=== PATIENT | male | born 2000 | race African-American/Black ===

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

== ENCOUNTER 2022-10-26 15:51 | Outpatient (CLI) | payer OTHER, MEDICAID, SELFPAY ==
[2022-10-26 16:24] LABS: Alanine Aminotransferase 15 U/L (6-50); Albumin Level 4.9 g/dL (3.5-5.1); Alkaline Phosphatase 77 U/L (38-126); Anion Gap 6 mmol/L (8-16); Aspartate Amino Transferase 20 U/L (17-59); Bilirubin,Total 0.4 mg/dL (0.2-1.3); Blood Urea Nitrogen 9 mg/dL (9-20); Calcium 9.1 mg/dL (8.4-10.2); Carbon Dioxide 30 mmol/L (22-30); Chloride 102 mmol/L (98-107); Estimated Glomerular Filt Rate > 60; Glucose 106 mg/dL (65-110); Potassium 3.9 mmol/L (3.4-5.0); Sodium 138 mmol/L (137-145)
[2022-10-26 17:11] LABS: Vitamin D 25 Hydroxy 29.7 ng/mL
== END 2022-10-26 15:52 | disposition home or self-care (01) ==
PROVIDERS: PCP Family Medicine
DX: G40.309 Generalized idiopathic epilepsy and epileptic syndromes, not intractable, without status epilepticus (principal)
CPT/HCPCS: 36415; 80053; 80183; 82306

== ENCOUNTER 2025-03-27 13:13 | Emergency (ER) | payer OTHER, SELFPAY ==
--- NOTE | ~2025-03-27 | CT_ITS ---
EXAMINATION: CT lumbar spine wo con COMPARISON: None HISTORY: low back pain, trauma TECHNIQUE: Axial images were obtained through the spine without IV contrast. Coronal, sagittal reconstruction images were obtained from the axial views. CT scan performed using dose optimization techniques including the following automated exposure control; adjustment of mA and/or kV; use of iterative reconstruction technique. Automatic exposure control was used to reduce radiation dose. Permanent radiation dose record is archived to PACS. FINDINGS: There is an acute superior endplate fracture of L2 with loss of height and facet. There is an acute superior endplate fracture of L3 with retropulsion measures 3 mm in loss of height 50%. The disc heights are intact. Soft tissues unremarkable. Impression: Fractures detailed above Reviewed, dictated and finalized at location P. Impression: Fractures detailed above
[2025-03-27 13:17] VITALS: BP 130/96; PULSE 92; RESP 20; TEMP 36.3; O2SAT 99
--- NOTE | 2025-03-27 13:36 | ED.GENADULT ---
HPI - General Adult General Chief complaint: Back Pain/Injury Stated complaint: back pain Time Seen by Provider: 03/27/25 13:17 History of Present Illness HPI narrative: A 24-year-old male history of epilepsy present to the emergency department for evaluation for a breakthrough seizure. Patient reports he typically has but 3 breakthrough seizures a year. States that they are often caused by sleep deprivation. Patient states he did stay up too late last night. Patient denies anything unusual about this seizure and does feel back to his baseline. Patient is here with his mother also states patient is back to his baseline. Patient's primary complaint is lower back pain. Patient did take ibuprofen for pain control at home. Patient denies any associated numbness or weakness. Related Data Home Medications ?Medication ?Instructions ?Recorded ?Confirmed ?Last Taken ?Type oxcarbazepine 600 mg 600 mg PO DAILY 12/30/21 11/16/24 Unknown History tablet,extended release 24 hr (Oxtellar XR) Allergies Allergy/AdvReac Type Severity Reaction Status Date / Time No Known Allergies Allergy Verified 03/27/25 13:43 Review of Systems Review of Systems: All systems reviewed & are unremarkable except as noted in HPI and below PMFSH Past Medical History Medical History Rash Brain mass Enlarged lymph node Excessive sweating Generalized epilepsy Valente's fracture, right hand, initial encounter for closed fracture [place]-Schlatter's disease of left lower extremity Tinea corporis Unspecified convulsions Body mass index (BMI) less than 20 Hyperhidrosis Nail deformity Family History Family History Father No problems noted. Mother Hyperhidrosis Sibling No problems noted. Other Family history of coronary artery disease Family history of elevated blood lipids Social History Social History Smoking status: Never smoker Second hand tobacco smoke exposure: No Alcohol intake: never Substance use: current Substance use type: marijuana Living arrangements: with family Occupation/Education: student Additional occupation/education comments: lawn care Gender identity (if verbalized by the patient): Male Exam Narrative: APPEARANCE: Well appearing, no pain, no distress, well-nourished. HEAD: normocephalic, atraumatic. EYES: PERRLA/EOMI, conjunctivae clear. NOSE: Normal no drainage EARS:TMS clear with good light reflex. THROAT: Pharynx clear, no exudate. NECK: Supple. No adenopathy, no masses. RESPIRATORY: Airway patent, respirations nonlabored. Clear to auscultation bilaterally, no rales, rhonchi, wheezing. CARDIOVASCULAR: Regular rate and rhythm without murmurs rubs or gallops. ABDOMINAL: Soft, nontender, nondistended, normal bowel sounds MUSCULOSKELETAL: Lower back tenderness to palpation NEURO: Alert. Cranial nerves II through XII intact. Good gait. Good coordination SKIN: Warm, dry. Normal Color Course Vital Signs Vital signs: Vital Signs Temperature 97.3 F L 03/27/25 13:17 Pulse Rate 92 03/27/25 13:17 Respiratory Rate 20 03/27/25 13:17 Blood Pressure 130/96 H 03/27/25 13:17 Pulse Oximetry 99 03/27/25 13:17 Oxygen Delivery Room Air 03/27/25 13:17 Temperature 97.3 F L 03/27/25 13:17 Pulse Rate 92 03/27/25 13:17 Respiratory Rate 20 03/27/25 13:17 Blood Pressure 130/96 H 03/27/25 13:17 Pulse Oximetry 99 03/27/25 13:17 Oxygen Delivery Room Air 03/27/25 13:17 Medical Decision Making MDM Narrative Medical decision making narrative: 24-year-old male presents emergency department for evaluation of lower back pain after having a seizure today. Patient is unsure how he injured his back but patient does complain of lower back pain. Patient denies any change in bladder or or bowel habits. Patient denies any associated numbness or weakness. Patient's primary complaint is pain. Patient was treated with IM Toradol and p.o. Meally in the emergency department and does report he does still have pain but does feel improved. Patient and family were updated on results of the workup they are comfortable with plan for discharge and close follow-up with Neurosurgery. They were also advised to try a lumbar back support Differential Diagnosis Differential Diagnosis: lumbar contusion, lumbar fracture, spinal cord injury, quad Aquinas syndrome Vital Signs Vital Signs: Vital Signs Temperature 97.3 F L 03/27/25 13:17 Pulse Rate 92 03/27/25 13:17 Respiratory Rate 20 03/27/25 13:17 Blood Pressure 130/96 H 03/27/25 13:17 Pulse Oximetry 99 03/27/25 13:17 Oxygen Delivery Room Air 03/27/25 13:17 Temperature 97.3 F L 03/27/25 13:17 Pulse Rate 92 03/27/25 13:17 Respiratory Rate 20 03/27/25 13:17 Blood Pressure 130/96 H 03/27/25 13:17 Pulse Oximetry 99 03/27/25 13:17 Oxygen Delivery Room Air 03/27/25 13:17 Imaging Data Radiologist's impression: Impressions Lumbar Spine CT 03/27/25 14:01 Impression: Fractures detailed above Discharge Plan Discharge Clinical Impression: Closed lumbar vertebral fracture Patient Disposition: Home Condition: Stable Instructions: Antibiotic Form, Vertebral Compression Fracture (ED) Additional Instructions: ibuprofen for pain control. Flexeril for muscle spasm. Meally as needed for additional pain control. Have close follow-up with Neurosurgery. If you have any worsening symptoms then please call or return to the emergency department. A lumbar back support may help with your symptoms. If you develop numbness weakness of the legs or difficulty starting urination or incontinence to stool then please call or return to the emergency department. Patient Language: Lithuanian Prescriptions: New cyclobenzaprine 10 mg tablet 10 mg PO BID PRN (Reason: muscle spasm) Qty: 14 0RF hydrocodone-acetaminophen 5-325 mg tablet 1 tablet PO Q12H PRN (Reason: pain) Qty: 14 0RF No Action Oxtellar XR 600 mg tablet extended release 24 hr 600 mg PO DAILY Follow-up/Referrals: Praveen Karimi MD [Physician, Neurosurgery] Jeramy Ramirez MD [Primary Care Provider, Family Practice]
[2025-03-27] MEDS: CYCLOBENZAPRINE HCL 10 MG TABLET PO (13:41)
[2025-03-27] MEDS: HYDROcodone/acetaminophen (*CRX) 7.5-325 MG TABLET 1 TAB PO (13:41)
--- OUTSIDE RECORDS SUMMARY | 2025-03-27 14:06 | XMS_ITS | Clinical Summary ---
Author Organization [facility] Address [address] [place] [address] Care Team Providers Care Ropeman Name Role Phone Jeramy Ramirez MD Unavailable [phone] Jeramy Ramirez MD Primary Care Provider [phone] Source Comments [facility],non-owned Affiliates and Associated Physician Practices is amultiple site organization consisting of ambulatory clinics and hospital sitesin [place], [place], [place] and [place]. This disclosure is being madepursuant to the Care Everywhere program and may not contain all information available regarding this patient. Last updated 18.[facility] Allergies No known active allergies Medications * This document contains information received from the source organization and may not represent a complete record from that organization. * Be aware that medications may not be up to date on this document. Alwaysverify current medications with the patient. glycopyrrolate (ROBINUL) 2 MG tabletIndication s:Hyperhidrosis Take 1 (one) tablet by mouth once daily Reasons: Excessive Sweating Disorder 0 Active clonazePAM, disintegrating, (KlonoPIN Wafer) 0.5 MG tablet Dissolve 1 (one) tablet under the tongue as needed (administer 1 tab PRN x 1 for seziure rescue or post ictal confusion/agre ssion) 5 tablet 3 Active OXcarbazepine ER 24hr (Oxtellar XR) 300 MG tablet Take 1 (one) tablet by mouth once daily on an empty stomach Take on an empty stomach with (3) 600mg tablets 30 tablet 11 5 Active OXcarbazepine ER 24hr (Oxtellar XR) 600 MG tabletIndication s:Generalized convulsive epilepsy without intractable epilepsy (HCC) TAKE 3 TABLETS BY MOUTH ONCE DAILY ON AN EMPTY STOMACH WITH (1) 300MG TAB 90 tablet 11 5 Active Active Problems Patient Care Coordination No te Formatting of this note migh t be different from the original. Do you have any cultural preferences or concerns? No 02/09/22 Problem Noted Date Diagnosed Date LEFT Temporal lobe lesion 12/30/2016 Complex partial seizure evolving to generalized seizure 05/08/2015 Overview (03/04/2019): Onset: 1st seizure happened at school in 07/2014. EEG 08/09/2014: generalized spikes and sharp wave discharges consistent with tendency toward generalized epilepsy. 03/10/2017: diffuse epileptogenic dysfunction apparently emanating from the left hemisphere but not discretely localized over the known lesion on neuroimaging. No clinical seizures were recorded. 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 Last MRI: 08/12/2018 showed unchanged brain lesion. February 2017 he had epilepsy surgery evaluation but his EEG showed diffuse discharges and not coming from the site of lesion so was consider not a candidate for surgery. Seizure semiology: Pre-ictal: none Ictus: unresponsiveness then tonic posturing of the body. Duration typically 30-40 sec; max 3 minutes Post-ictal: tired and sleepy. Last seizure: 09/2018 Previous AED: He continued to have seizures on lamictal and had poor tolerance so was switched to Trileptal 300 mg qd in May 2016. 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 Last seizure 09/2018 while on Oxtellar 1200 mg QHS with good compliance. - BMP, CBC, vitamin D and trileptal level - given seizure in 09/2018 while on current oxtellar dosing, depending on what today's level is, may consider increasing Oxtellar dose by additional 300 mg. Until then, continue 1200 mg QHS - if Oxtellar does not provide complete seizure control, next consider Depakote - no rescue meds needed - seizure action plan provided today - Basic seizure precautions 1. No climbing to heights over 4-6 feet 2. No un supervised sitting in water of any kind, including bath tubs and swimming pools. Showers are preferred, no locked doors. 3. No operating anything with a motor, including lawn mowers, ATV, or cars until at least 6 mo seizure-free 4. No power tools 5. You CAN ride a bicycle on a quiet street with a helmet Assessment & Plan (03/26/2018 10:04 AM CDT): 17 yo male with left posterior Tempral subcortical lesion also has complex partial seizures with rapidly secondary generalization. Surgical evaluation was negative due to diffuse discharges. Since that evaluation he is doing well. Has seizures if he misses doses of sleep deprived. Last seizure is in August 2017. Continue trileptal (Oxtellar) 900 mg at night. (tab 600 mg + 300 mg). Plan: Will get BMP and Trileptal level Today. Continue trileptal (Oxtellar) 900 mg at night. (tab 600 mg + 300 mg). If any questions call Neurology clinic on [phone] Wednesday-Wednesday between 8 am to 4 pm. After 4 pm or on the weekend call [phone]; ask for on-call Neurologist. Assessment & Plan (03/03/2017 12:28 PM CDT): Lata is a 16 yo male with seizures and a subcortical L temporal lobe lesion. History is unclear whether seizures are focal with secondary generalization or are generalized seizures, as only one seizure was witnessed from the beginning and reportedly had shaking of one hand prior to full body shaking. 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 Continue VEEG. We will hold his anti-epileptic medications and continue sleep deprivation in hopes that he has an event that can be recorded to properly evaluate the origin of his seizures. Ativan will be prescribed prn for seizure termination. Assessment & Plan (03/02/2017 1:03 PM CDT): Lata is a 16 yo male with seizures and a L temporal lobe lesion. History is unclear whether seizures are focal with secondary generalization or are generalized seizures. EEG overnight showed spike and wave discharges originating in the frontal lobes, but did not suggest that the L temporal mass is a seizure nidus. We will hold his anti-epileptic medications and sleep deprive him overnight while continuing EEG monitoring in hopes that he has an event that can be recorded to properly evaluate the origin of his seizures. Ativan will be prescribed prn for seizure termination. Encounters Date Type Department Care Team Description 02/22/2025 Results Follow-Up [facility] - Neurology [address] [place] [phone] Christ Philippe MD 02/14/2025 12:38 PM CDT - 02/14/2025 11:59 PM CDT Hospital Encounter [facility] - Lab [address] [place] [phone] Christ Philippe MD Discharge Disposition: Home or Self Care 02/14/2025 11:30 AM CDT - 02/14/2025 12:37 PM CDT Hospital Encounter [facility] - Neurology [address] [place] [phone] Christ Philippe MD Discharge Disposition: Home or Self Care 02/14/2025 Travel 02/02/2025 1:24 PM CDT - 02/02/2025 11:59 PM CDT Hospital Encounter [facility] - MRI [address] [place] [phone] Christ Philippe MD Discharge Disposition: Home or Self Care 01/08/2025 Refill [facility] - Neurology [address] [place] [phone] Christ Philippe MD Question from Last 3 Months Immunizations Immunization Administration Dates Next Due DTaP VACCINE IM (6wk-6yrs) 08/26/2007,,04/30/2003,02/26,2002 HEP B VACCINE, PED/ADOL 08/03/2003,2002, HIB VACCINE 02/18/2004, 3,02/26/2003,12/12 Human Papilloma Virus Nineva lent Vaccine 01/26/2017 Human Papilloma Virus Robin valent Vaccine 01/12/2014 INFLUENZA VACCINE 05/23/2004,04/23/2004 MENINGOCOCCAL ACWY (MCV4P) VAC IM 04/02/2020,01/2017 MMR VACCINE 08/26/2007,10/22/2003 PNEUMOCOCCAL PCV7 CONJ, PEDS 05/20/2004, 04/30/2003,02/26/2003,12/12 POLIO IPV 08/26/2007, 4,02/26/2003,12/12 TDAP, HISTORIC VACCINE 01/12/2014 VARICELLA 01/12/2014,10/22/2003 Social History Tobacco Use Types Packs/Day Years Used Date Smoking Tobacco: Never Passive Smoke Exposure: Never Smokeless Tobacco: Never Tobacco Cessation:Counseling Given: Not Answered Comments:Vapes Alcohol Use Standard Drinks/Week Comments Yes 1 (1 standard drink = 0.6 oz pur e alcohol) occasional drinks PHQ-2 Answer Date Recorded Patient Health Questionnaire-2 Score 0 09/06/2023 Sex and Gender Information Value Date Recorded Sex Assigned at Not on file Legal Sex Male 3:06 PM [employer] Gender Identity Not on file Sexual Orientation Not on file Last Filed Vital Signs Vital Sign Reading Time Taken Comments Blood Pressure 128/82 02/14/2025 11:49 AM CDT Pulse 55 08/16/2019 12:00 PM [employer] Temperature 36.5 C (97.7 F) 08/16/2019 12:00 PM [employer] Respiratory Rate 16 08/16/2019 12:00 PM [employer] Oxygen Saturation 99% 08/16/2019 12:00 PM [employer] Inhaled Oxygen Concentration - - Weight 65 kg (143 lb 4.8 oz) 02/14/2025 11:49 AM CDT Height 181 cm (5' 11.26) 02/14/2025 11:49 AM CD T Body Mass Index 19.84 02/14/2025 11:49 AM CDT Plan of Treatment Health Maintenance Due Date Last Done Comments HIV SCREENING 2017 MENINGOCOCCAL (Group B) VACC INE SHARED DECISION-MAKING (1 of 2 - Standard) 2018 HEPATITIS C SCREENING 10/06/2020 DTAP/TDAP/TD VACCINES (7 - T d or Tdap) 01/13/2024 01/12/2014, 08/26/2007, 02/18/2004, Additional history exists DEPRESSION SCREENING 06/21/2024 09/06/2023 COVID-19 VACCINE (2023-2 5 season) 2025 INFLUENZA VACCINE (#1) 2025 05/23/2004, 2003 ZOSTER VACCINE (1 of 2) 2052 HEPATITIS B VACCINE Completed 08/03/2003, 2002, 2002 HIB VACCINE Completed 02/18/2004, 04/21, 02/26/2003, Additional history exists PNEUMOCOCCAL VACCINE Completed 05/20/2004, 04/30/2003, 02/26/2003, Additional history exists HPV VACCINE Completed 01/26/2017, 01/12/2014 MENINGOCOCCAL GROUPS A/C/Y/W VACCINE Completed 04/02/2020, 01/26/2017 Procedures Procedure Name Priority Date/Time Associated Diagnosis Comments COMPREHENSIVE METABOLIC PANEL Routine 02/14/2025 12:40 PM CDT Generalized convulsive epilepsy without intractable epilepsy (HCC) CBC W AUTO DIFFERENTIAL Routine 02/14/2025 12:40 PM CDT Generalized convulsive epilepsy without intractable epilepsy (HCC) VITAMIN D 25-HYDROXY Routine 02/14/2025 12:40 PM CDT Generalized convulsive epilepsy without intractable epilepsy (HCC) OXCARBAZEPINE BLOOD Routine 02/14/2025 1 2:40 PM CDT Generalized convulsive epilepsy without intractable epilepsy (HCC) MRI BRAIN WWO CONTRAST Routine 3:30 PM CDT Brain mass Partial symptomatic epilepsy with complex partial seizures, not intractable, without status epilepticus (HCC) from Last 3 Months Results * (ABNORMAL) OXCARBAZEPINE (02/14/2025 12:40 PM CDT) Oxcarbazepine Metabolite 45.4(H) 10.0 - 35.0 ug/mL 02/16/2025 3:46 PM CDT [facility] ([facility]) Comment: INTERPRETIVE INFORMATION: Oxcarbazepine Metabolite, Serum Therapeutic Range: 10.0 - 35.0 ug/mL Toxic Range: >=40.0 ug/mL This test measures monohydroxyoxcarbazepine (MHD). Adverse effects may include dizziness, fatigue, nausea, headache, somnolence, ataxia, and tremor. Performed By: [facility] [address] [place] [address] Cotton Dispatcher: [place] Oneill MD, PhD CLIA Number: [id number] Blood BLOOD SPECIMEN / Unknown Lab Venipuncture / Unknown 02/14/2025 12:40 PM CDT 02/14/2025 12:50 PM CDT us Christ Philippe MD LAB - CHEMISTRY ORDERABLES Eloise rhett Result [facility]) [address] [place] [address] * (ABNORMAL) VITAMIN D 25-HYDROXY (02/14/2025 12:40 PM CDT) Vitamin D, 25 Hydroxy 22.7(L) 30.0 - 80.0 ng/mL 02/14/2025 1:58 PM CDT [facility] Comment: The recommendations for 25-Hydroxy Vitamin D clinical decision points are as follows: Deficient: <20.0 ng/mL Insufficient: 20.0 - 29.9 ng/mL Sufficient: 30.0 - 100.0 ng/mL Potential Toxicity: >100 ng/mL Reference: The Endocrine Society Clinical Practice Guidelines. 2011 If the 25-Hydroxy Vitamin D results are inconsitent with clinical evidence, it is recommended that follow-up testing using a method such as LC/MS/MS be performed to confirm the result. Blood BLOOD SPECIMEN / Unknown Lab Venipuncture / Unknown 02/14/2025 12:40 PM CDT 02/14/2025 12:50 PM CDT us Christ Philippe MD LAB - CHEMISTRY ORDERABLES Eloise delaney Result [facility] [address] [place] [address], [facility] [phone] * (ABNORMAL) CBC W AUTO DIFFERENTIAL (02/14/2025 12:40 PM CDT) WBC 6.5 4.0 - 10.7 x10E9/L 02/14/2025 1:00 PM [facility] RBC Count 4.39 4.30 - 5.80 x10E12/L 02/14/2025 1:00 PM [facility] Hemoglobin 12.5(L) 13.3 - 17.5 g/dL 02/14/2025 1:00 PM [facility] Hematocrit 37.4(L) 38.7 - 51.1 % 02/14/2025 1:00 PM [facility] MCV 85.2 80.0 - 98.0 fL 02/14/2025 1:00 PM [facility] MCH 28.5 26.7 - 33.6 pg 02/14/2025 1:00 PM [facility] MCHC 33.4 31.7 - 36.3 g/dL 02/14/2025 1:00 PM [facility] RDW-CV 12.7 11.3 - 14.8 % 02/14/2025 1:00 PM [facility] Platelet Count 261 150 - 420 x10E9/L 02/14/2025 1:00 PM [facility] MPV 9.2 7.8 - 11.4 fL 02/14/2025 1:00 PM [facility] Neutrophil % 57.5 41.0 - 74.0 % 02/14/2025 1:00 PM [facility] Lymphocyte % 32.9 17.0 - 47.0 % 02/14/2025 1:00 PM [facility] Monocyte % 8.0 3.0 - 11.0 % 02/14/2025 1:00 PM T [facility] Eosinophil % 0.6 0.0 - 7.0 % 02/14/2025 1:00 PM [facility] Basophil % 0.8 0.0 - 1.6 % 02/14/2025 1:00 PM [facility] Immature Granulocytes % 0.2 0.0 - 1.0 % 02/14/2025 1:00 PM [facility] Neutrophil Absolute 3.73 1.60 - 7.50 x10E9/L 02/14/2025 1:00 PM [facility] Lymphocyte Absolute 2.13 1.00 - 4.40 x10E9/L 02/14/2025 1:00 PM [facility] Monocyte Absolute 0.52 0.15 - 1.00 x10E9/L 02/14/2025 1:00 PM [facility] Eosinophil Absolute 0.04 0.00 - 0.60 x10E9/L 02/14/2025 1:00 PM [facility] Basophil Absolute 0.05 0.00 - 0.13 x10E9/L 02/14/2025 1:00 PM [facility] Blood BLOOD SPECIMEN / Unknown Lab Venipuncture / Unknown 02/14/2025 12:40 PM CDT 02/14/2025 12:50 PM CDT us Christ Philippe MD LAB - HEMATOLOGY ORDERABLES Fin al Result [facility] [address] [place] [address], [facility] [phone] * (ABNORMAL) COMPREHENSIVE METABOLIC PANEL (02/14/2025 12:40 PM CDT) BUN 10 7 - 26 mg/dL 02/14/2025 1:39 PM [facility] Creatinine 0.84 0.71 - 1.16 mg/dL 02/14/2025 1:39 PM [facility] Sodium 133(L) 136 - 145 mmol/L 02/14/2025 1:39 PM [facility] Potassium 4.1 3.5 - 4.5 mmol/L 02/14/2025 1:39 PM [facility] Chloride 105 98 - 107 mmol/L 02/14/2025 1:39 PM [facility] CO2 25 22 - 29 mmol/L 02/14/2025 1:39 PM [facility] Glucose 112(H) 70 - 99 mg/dL 02/14/2025 1:39 PM [facility] Calcium 9.2 8.4 - 10.2 mg/dL 02/14/2025 1:39 PM [facility] Protein Total 7.1 6.0 - 8.3 g/dL 02/14/2025 1:39 PM [facility] Albumin 5.0 3.4 - 5.0 g/dL 02/14/2025 1:39 PM [facility] Bilirubin Total 0.3 0.2 - 1.2 mg/dL 02/14/2025 1:39 PM [facility] Alkaline Phosphatase 73 40 - 150 U/L 02/14/2025 1:39 PM [facility] ALT 12 5 - 55 U/L 02/14/2025 1:39 PM [facility] AST 15 5 - 34 U/L 02/14/2025 1:39 PM [facility] Anion Gap 3(L) 6 - 16 02/14/2025 1:39 PM [facility] BUN/Creatinine Ratio 12 7 - 23 02/14/2025 1:39 PM [facility] Osmolality Calculated 276 275 - 295 mOsm/kg 02/14/2025 1:39 PM [facility] Albumin/Globulin Ratio 2.4(H) 1.1 - 2.3 02/14/2025 1:39 PM [facility] eGFR by CKD-EPI >90 >=90 mL/min/1.7 3 m2 02/14/2025 1:39 PM CDT [facility] Comment:Estimated Glomerular Filtration Rate (eGFR) calculated using the CKD-EPI Creatinine Equation (2020), per the National Kidney Foundation and [place] Society of Nephrology recommendations. Blood BLOOD SPECIMEN / Unknown Lab Venipuncture / Unknown 02/14/2025 12:40 PM CDT 02/14/2025 12:50 PM CDT us Christ Philippe MD LAB - CHEMISTRY ORDERABLES Eloise delaney Result [facility] [address] [place] [address], [facility] [phone] * MRI Brain Wwo Contrast (02/02/2025 3:30 PM CDT) Anatomical Region Laterality Modality Head Magnetic Resonan ce 02/02/2025 3:37 PM CDT Impressions 02/02/2025 3:46 PM CDT IMPRESSION: Continued decrease in size of a T2 hyperintense focus of signal abnormality in the left inferior temporal lobe, strongly suggestive of sequela of prior injury or focal demyelination. No new area of signal abnormality. Questionable decreased trejo-white matter differentiation in the left hippocampus is not well evaluated. Given history of seizure, consider obtaining any follow-up MRI with seizure protocol (rather than tumor protocol) to obtain thin slice T2 sequence through the temporal lobes. > Interpreting Provider: Kathi Russo MD on 02/02/2025 3:46 PM Narrative 02/02/2025 3:46 PM CDT PROCEDURE: MRI BRAIN WWO CONTRAST DATE/TIME OF EXAM: 02/02/2025 3:30 PM CLINICAL INFORMATION: 24-year-old with epilepsy and history of left temporal lobe lesion (followed since at least 2015). COMPARISON: 09/06/2023, 03/17/2016. TECHNIQUE: MRI of the brain was performed without and with contrast. CONTRAST: GADOBUTROL 1 MMOL/ML IV SSM SO:5.7 mL FINDINGS: Continued significant decrease in size of the focus of subcortical signal abnormality in the left inferior temporal lobe, which now is best seen on T2-weighted sequence, with a small focus of T2 signal hyperintensity measuring approximately 0.5 x 0.4 x 0.3 cm (series 8 image 15 and series 6 image 15), previously 0.7 x 0.4 x 0.3 cm. There is no postcontrast enhancement. There is minimal associated FLAIR signal hyperintensity. There is no susceptibility artifact or diffusion restriction associated with the finding. No new area of signal abnormality. There is some subtle blurring of the trejo-white matter differentiation of the left hippocampus, which may be related to partial volume averaging as the exam does not contain any thin slice T2-weighted sequences of this region. The brain parenchymal signal and morphology are otherwise normal. The myelination pattern is otherwise normal for patient age. Diffusion and susceptibility weighted imaging are normal. There is no intracranial hemorrhage. The corpus callosum is normal. The pineal and pituitary glands are normal. The posterior fossa is normal, including no tonsillar herniation. The ventricles and extra-axial spaces are normal in size and shape. The flow voids of the major intracranial vessels are normal. No abnormal contrast enhancement is present within the brain parenchyma or meninges. The paranasal sinuses and mastoids are well aerated. The orbits, calvarium and soft tissues of the scalp are grossly unremarkable. Procedure Note Kathi Russo MD - 02/02/2025 PROCEDURE: MRI BRAIN WWO CONTRAST DATE/TIME OF EXAM: 02/02/2025 3:30 PM CLINICAL INFORMATION: 24-year-old with epilepsy and history of left temporal lobe lesion (followed since at least 2015). COMPARISON: 09/06/2023, 03/17/2016. TECHNIQUE: MRI of the brain was performed without and with contrast. CONTRAST: GADOBUTROL 1 MMOL/ML IV SSM SO:5.7 mL FINDINGS: Continued significant decrease in size of the focus of subcorticalsignal abnormality in the left inferior temporal lobe, which now is best seenon T2-weighted sequence, with a small focus of T2 signal hyperintensity measuring approximately 0.5 x 0.4 x 0.3 cm (series 8 image 15 and series6 image 15), previously 0.7 x 0.4 x 0.3 cm. There is no postcontrast enhancement. There is minimal associated FLAIR signal hyperintensity.There is no susceptibility artifact or diffusion restriction associated withthe finding. No new area of signal abnormality. There is some subtle blurring of the trejo-white matter differentiationof the left hippocampus, which may be related to partial volume averagingas the exam does not contain any thin slice T2-weighted sequences of this region. The brain parenchymal signal and morphology are otherwise normal. The myelination pattern is otherwise normal for patient age. Diffusion and susceptibility weighted imaging are normal. There is no intracranial hemorrhage. The corpus callosum is normal. The pineal and pituitary glands arenormal. The posterior fossa is normal, including no tonsillar herniation. The ventricles and extra-axial spaces are normal in size and shape. The flow voids of the major intracranial vessels are normal. No abnormal contrast enhancement is present within the brain parenchymaor meninges. The paranasal sinuses and mastoids are well aerated. The orbits,calvarium and soft tissues of the scalp are grossly unremarkable. IMPRESSION: Continued decrease in size of a T2 hyperintense focus of signalabnormality in the left inferior temporal lobe, strongly suggestive of sequela ofprior injury or focal demyelination. No new area of signal abnormality. Questionable decreased trejo-white matter differentiation in the left hippocampus is not well evaluated. Given history of seizure, consider obtaining any follow-up MRI with seizure protocol (rather than tumor protocol) to obtain thin slice T2 sequence through the temporal lobes. > Interpreting Provider: Kathi Russo MD on 02/02/2025 3:46 PM Christ Philippe MD MR ORDERABLES Final Result from Last 3 Months Insurance MEDICAID - [place] MED[place] - OUT OF STATE COMMERCIAL GENERIC Care Teams Ropeman Relationship Specialty Start Date End Date Jeramy Ramirez MD [address] [place] [address] PCP - General Family Medicine 08/10/14 Jeramy Ramirez MD [address] [place] [address] Family Medicine 08/09/14
--- OUTSIDE RECORDS SUMMARY | 2025-03-27 14:44 | XMS_ITS | Clinical Summary ---
Author Organization [facility] Address [address] [place] [address] Care Team Providers Care Logistics Research Engineer Name Role Phone Jeramy Ramirez MD Unavailable [phone] Jeramy Ramirez MD Primary Care Provider [phone] Source Comments [facility],non-owned Affiliates and Associated Physician Practices is amultiple site organization consisting of ambulatory clinics and hospital sitesin [place], [place], [place] and [place]. This disclosure is being madepursuant to the Care Everywhere program and may not contain all information available regarding this patient. Last updated 18.[facility] Allergies No known active allergies Medications * [...] If any questions call Neurology clinic on [phone] Wednesday-Wednesday between 8 am to 4 pm. After 4 pm or on the weekend call [phone]; ask for on-call Neurologist. Assessment & Plan [...] Department Care Team Description 02/22/2025 Results Follow-Up [facility] - Neurology [address] [place] [id number] Christ Philippe MD 02/14/2025 12:38 PM CDT - 02/14/2025 11:59 PM CDT Hospital Encounter [facility] - Lab [address] [place] [phone] Christ Philippe MD Discharge Disposition: Home or Self Care 02/14/2025 11:30 AM CDT - 02/14/2025 12:37 PM CDT Hospital Encounter [facility] - Neurology [address] [place] [phone] Christ Philippe MD Discharge Disposition: Home or Self Care 02/14/2025 Travel 02/02/2025 1:24 PM CDT - 02/02/2025 11:59 PM CDT Hospital Encounter [facility] - MRI [address] [place] [phone] Christ Philippe MD Discharge Disposition: Home or Self Care 01/08/2025 Refill [facility] - Neurology [address] [place] [address] [phone] Christ Philippe MD Question from Last 3 [...] on file Legal Sex Male 3:06 PM REGISTERED ART THERAPIST Gender Identity Not on file Sexual Orientation Not on file Last Filed Vital Signs Vital Sign Reading Time Taken Comments Blood Pressure 128/82 02/14/2025 11:49 AM CDT Pulse 55 08/16/2019 12:00 PM REGISTERED ART THERAPIST Temperature 36.5 C (97.7 F) 08/16/2019 12:00 PM REGISTERED ART THERAPIST Respiratory Rate 16 08/16/2019 12:00 PM REGISTERED ART THERAPIST Oxygen Saturation 99% 08/16/2019 12:00 PM REGISTERED ART THERAPIST Inhaled Oxygen Concentration - - Weight 65 [...] - 35.0 ug/mL 02/16/2025 3:46 PM CDT [facility] ([facility]) Comment: INTERPRETIVE INFORMATION: Oxcarbazepine Metabolite, Serum Therapeutic Range: 10.0 - 35.0 ug/mL Toxic Range: >=40.0 ug/mL This test measures monohydroxyoxcarbazepine (MHD). Adverse effects may include dizziness, fatigue, nausea, headache, somnolence, ataxia, and tremor. Performed By: [facility] [address] [place] [address] Armored Car Driver: Robinson Oneill MD, PhD CLIA Number: [id number] Blood BLOOD SPECIMEN / Unknown Lab Venipuncture / Unknown 02/14/2025 12:40 PM CDT 02/14/2025 12:50 PM CDT us Christ Philippe MD LAB - CHEMISTRY ORDERABLES Eloise rhett Result [facility] d/b/a [employer] [facility]) [address] [place] [address] * (ABNORMAL) VITAMIN D 25-HYDROXY (02/14/2025 12:40 PM CDT) Vitamin D, 25 Hydroxy 22.7(L) 30.0 - 80.0 ng/mL 02/14/2025 1:58 PM CDT [facility] Comment: The recommendations for 25-Hydroxy [...] LAB - CHEMISTRY ORDERABLES Eloise delaney Result [facility] [address] [place] [address], [facility] [phone] * (ABNORMAL) CBC W AUTO DIFFERENTIAL (02/14/2025 12:40 PM CDT) WBC 6.5 4.0 - 10.7 x10E9/L 02/14/2025 1:00 PM [facility] RBC Count 4.39 4.30 - 5.80 x10E12/L 02/14/2025 1:00 PM [facility] Hemoglobin 12.5(L) 13.3 - 17.5 g/dL 02/14/2025 1:00 PM [facility] Hematocrit 37.4(L) 38.7 - 51.1 % 02/14/2025 1:00 PM [facility] MCV 85.2 80.0 - 98.0 fL 02/14/2025 1:00 PM [facility] MCH 28.5 26.7 - 33.6 pg 02/14/2025 1:00 PM [facility] MCHC 33.4 31.7 - 36.3 g/dL 02/14/2025 1:00 PM [facility] RDW-CV 12.7 11.3 - 14.8 % 02/14/2025 1:00 PM [facility] Platelet Count 261 150 - 420 x10E9/L 02/14/2025 1:00 PM [facility] MPV 9.2 7.8 - 11.4 fL 02/14/2025 1:00 PM [facility] Neutrophil % 57.5 41.0 - 74.0 % 02/14/2025 1:00 PM [facility] Lymphocyte % 32.9 17.0 - 47.0 % 02/14/2025 1:00 PM [facility] Monocyte % 8.0 3.0 - 11.0 % 02/14/2025 1:00 PM T [facility] Eosinophil % 0.6 0.0 - 7.0 % 02/14/2025 1:00 PM [facility] Basophil % 0.8 0.0 - 1.6 % 02/14/2025 1:00 PM [facility] Immature Granulocytes % 0.2 0.0 - 1.0 % 02/14/2025 1:00 PM [facility] Neutrophil Absolute 3.73 1.60 - 7.50 x10E9/L 02/14/2025 1:00 PM [facility] Lymphocyte Absolute 2.13 1.00 - 4.40 x10E9/L 02/14/2025 1:00 PM [facility] Monocyte Absolute 0.52 0.15 - 1.00 x10E9/L 02/14/2025 1:00 PM [facility] Eosinophil Absolute 0.04 0.00 - 0.60 x10E9/L 02/14/2025 1:00 PM [facility] Basophil Absolute 0.05 0.00 - 0.13 x10E9/L 02/14/2025 1:00 PM [facility] Blood BLOOD SPECIMEN / Unknown Lab Venipuncture / Unknown 02/14/2025 12:40 PM CDT 02/14/2025 12:50 PM CDT us Christ Philippe MD LAB - HEMATOLOGY ORDERABLES Fin al Result [facility] [address] [place] [address], [facility] [phone] * (ABNORMAL) COMPREHENSIVE METABOLIC PANEL (02/14/2025 12:40 PM CDT) BUN 10 7 - 26 mg/dL 02/14/2025 1:39 PM [facility] Creatinine 0.84 0.71 - 1.16 mg/dL 02/14/2025 1:39 PM [facility] Sodium 133(L) 136 - 145 mmol/L 02/14/2025 1:39 PM [facility] Potassium 4.1 3.5 - 4.5 mmol/L 02/14/2025 1:39 PM [facility] Chloride 105 98 - 107 mmol/L 02/14/2025 1:39 PM [facility] CO2 25 22 - 29 mmol/L 02/14/2025 1:39 PM [facility] Glucose 112(H) 70 - 99 mg/dL 02/14/2025 1:39 PM [facility] Calcium 9.2 8.4 - 10.2 mg/dL 02/14/2025 1:39 PM [facility] Protein Total 7.1 6.0 - 8.3 g/dL 02/14/2025 1:39 PM [facility] Albumin 5.0 3.4 - 5.0 g/dL 02/14/2025 1:39 PM [facility] Bilirubin Total 0.3 0.2 - 1.2 mg/dL 02/14/2025 1:39 PM [facility] Alkaline Phosphatase 73 40 - 150 U/L 02/14/2025 1:39 PM [facility] ALT 12 5 - 55 U/L 02/14/2025 1:39 PM [facility] AST 15 5 - 34 U/L 02/14/2025 1:39 PM [facility] Anion Gap 3(L) 6 - 16 02/14/2025 1:39 PM [facility] BUN/Creatinine Ratio 12 7 - 23 02/14/2025 1:39 PM [facility] Osmolality Calculated 276 275 - 295 mOsm/kg 02/14/2025 1:39 PM [facility] Albumin/Globulin Ratio 2.4(H) 1.1 - 2.3 02/14/2025 1:39 PM [facility] eGFR by CKD-EPI >90 >=90 mL/min/1.7 3 m2 02/14/2025 1:39 PM CDT [facility] Comment:Estimated Glomerular Filtration Rate (eGFR) calculated using the CKD-EPI Creatinine Equation (2020), per the National Kidney Foundation and [place] [employer]ph[employer] recommendations. Blood BLOOD SPECIMEN / Unknown Lab Venipuncture / Unknown 02/14/2025 12:40 PM CDT 02/14/2025 12:50 PM CDT us Christ Philippe MD LAB - CHEMISTRY ORDERABLES Eloise delaney Result [facility] [address] [place] [address], [facility] [phone] * MRI Brain Wwo Contrast (02/02/2025 3:30 [...] Last 3 Months Insurance MEDICAID - [place] [facility] MEDICAID - OUT OF STATE COMMERCIAL GENERIC Care Teams Logistics Research Engineer Relationship Specialty Start Date End Date Jeramy Ramirez MD [address] [place] [address] PCP - General Family Medicine 08/10/14 Jeramy Ramirez MD [address] [place] [address] Family Medicine 08/09/14
[2025-03-27] MEDS: KETOROLAC 30 MG/ML VIAL (*BKC) IM (15:09)
== END 2025-03-27 15:25 | disposition home or self-care (01) ==
PROVIDERS: Emergency Provider Emergency Medicine; PCP Family Medicine
DX: S32.028A Other fracture of second lumbar vertebra, initial encounter for closed fracture (principal); S32.038A Other fracture of third lumbar vertebra, initial encounter for closed fracture; G40.409 Other generalized epilepsy and epileptic syndromes, not intractable, without status epilepticus; X58.XXXA Exposure to other specified factors, initial encounter
CPT/HCPCS: 72131; 96372; 99284; A9270; J1885